=== PATIENT | male | born 1935 | race Caucasian/White ===

== ENCOUNTER 2017-11-20 09:22 | Inpatient (IN) | payer OTHER, MEDICARE ==
[~2017-11-20 09:22] MED LIST: NS IV ONE; POVIDONE-IODINE 20 ML in SODIUM CL IRRIG SOLUTION 500 ML IRR ONE; ROPIVACAINE 0.2% 80 MG, EPINEPHrine 0.2 MG, KETOROLAC TROMETHAMINE 30 MG in SYRINGE 0 ML IU ONE; TRANEXAMIC ACID IV ONE
[2017-11-20] MEDS ORDERED: DEXAMETHASONE 4 MG/ML VIAL IVP ONE (09:56)
[2017-11-20] MEDS ORDERED: GABAPENTIN 300 MG CAP PO ONE (09:56)
[2017-11-20] MEDS ORDERED: FAMOTIDINE 20 MG TAB PO ONE (09:56)
[2017-11-20] MEDS ORDERED: ceFAZolin 2 GM/SWFI 2 GM/20 ML SYR IVP ONE (09:56)
[2017-11-20] MEDS ORDERED: ONDANSETRON 4 MG/2 ML VIAL IVP ONE (09:56)
[2017-11-20] MEDS ORDERED: ACETAMINOPHEN 325 MG TAB PO ONE (09:56)
[2017-11-20] MEDS ORDERED: LR 1,000 ML IV ONE (09:59)
[2017-11-20] MEDS ORDERED: LIDOCAINE 1% 2 ML INJ ID PRN (09:59)
[2017-11-20] MEDS ORDERED: ceFAZolin 1 GM/5 ML SYR ONE (10:30)
[2017-11-20] MEDS ORDERED: MIDAZOLAM 2 MG/2 ML VIAL IVP ONE (11:45)
--- NOTE | 2017-11-20 11:49 | PDANEPAE ---
ANE History of Present Illness R SERENITY ANE Past Medical History - Cardiovascular History Hx Hypertension: Yes Hx Arrhythmias: No Hx Chest Pain: No Hx Coronary Artery / Peripheral Vascular Disease: No Hx CHF / Valvular Disease: No Hx Palpitations: No Cardiovascular History Comment: hypercholesterolemia - Pulmonary History Hx COPD: No Hx Asthma/Reactive Airway Disease: No Hx Recent Upper Respiratory Infection: No Hx Oxygen in Use at Home: No Hx Sleep Apnea: No Sleep Apnea Screening Result - Last Documented: Positive Pulmonary History Comment: randi triggers no dx - Neurologic History Hx Cerebrovascular Accident: No Hx Seizures: No Hx Dementia: No Neurologic History Comment: tia 2007 - Endocrine History Hx Diabetes: No - Renal History Hx Renal Disorders: Yes Renal History Comment: CA PREV TURBT. BCG TREATMENTS LAST 08/2017 - Liver History Hx Hepatic Disorders: No - Neurological & Psychiatric Hx Hx Neurological and Psychiatric Disorders: No - Cancer History Hx Cancer: Yes Cancer History Comment: BLADDER - Congenital Disorder History Hx Congenital Disorders: No - GI History Hx Gastrointestinal Disorders: Yes Gastrointestinal History Comment: hiatal hernia MANAGED BY DIET - Other Health History Other Health History: OSTEOARTHRITIS - Chronic Pain History Chronic Pain: Yes (RT HIP) - Surgical History Prior Surgeries: TURBT 04/2015. LT KNEE SCOPE ANE Review of Systems Review of Systems: - Exercise capacity METS (RN): 4 METS ANE Patient History - Allergies Allergies/Adverse Reactions: garlic Allergy (Verified 11/01/17 12:10) GI ISSUES onion Allergy (Verified 11/01/17 12:10) GI ISSUES - Home Medications Home Medications: Losartan/Hydrochlorothiazide [Losartan-Hctz 100-25 Mg Tab] 1 each PO HS [Last Taken 11/13/17] Multivitamin with Minerals [Myvitalife] 1 each PO HS 03/03/15 [Last Taken ] Aspirin [Aspirin 81mg (*)] 81 mg PO HS 10/30/17 [Last Taken 11/13/17] Atorvastatin Calcium [Lipitor 40 mg (*)] 40 mg PO HS 10/30/17 [Last Taken ] Herbals/Supplements -Info Only 1 ea PO DAILY 10/30/17 [Last Taken 11/13/17] amLODIPine BESYLATE [Norvasc 2.5 mg (*)] 2.5 mg PO HS 10/30/17 [Last Taken 11/13] - NPO status NPO Since - Liquids (Date): 11/19/17 NPO Since - Liquids (Time): 21:00 NPO Since - Solids (Date): 11/19/17 NPO Since - Solids (Time): 20:00 - Smoking Hx Smoking Status: Former smoker - Family Anes Hx Family Hx Anesthesia Complications: none ANE Labs/Vital Signs - Labs - CBC WBC: labs reviewed and okay - Vital Signs Blood Pressure: 181/81 Heart Rate: 55 Respiratory Rate: 16 O2 Sat (%): 93 Height: 175.26 cm Weight: 78.471 kg ANE Physical Exam - Airway Neck exam: FROM Mallampati Score: Class 2 Mouth exam: normal dental/mouth exam - Pulmonary Pulmonary: no respiratory distress - Cardiovascular Cardiovascular: regular rate and rhythym - ASA Status ASA Status: II (R/B/A explained and pt. agrees to proceed)
--- NOTE | 2017-11-20 11:52 | PDHPUP ---
History & Physical Update H&P update statement: This history and physical update is based on an assessment of the patient which was completed after admission or registration (within 24 hours), but prior to the surgery/procedure. H&P update: H&P reviewed & patient examined, no change in patient's condition since H&P completed
[2017-11-20] MEDS ORDERED: PROPOFOL/EMULSION 500 MG/50 ML BOTTLE IV ONE ×2 (12:28→13:36)
[2017-11-20] MEDS ORDERED: fentaNYL 100 MCG/2 ML INJ ONE (12:28)
[2017-11-20] MEDS ORDERED: HYDROCODONE/APAP 5/325 TAB PO PRN (13:54)
[2017-11-20] MEDS ORDERED: fentaNYL 100 MCG/2 ML INJ IVP PRN (13:54)
[2017-11-20] MEDS ORDERED: MEPERIDINE 25 MG/ML SYR IVP PRN (13:54)
[2017-11-20] MEDS ORDERED: OXYCODONE/APAP 5/325 TAB PO PRN (13:54)
[2017-11-20] MEDS ORDERED: ONDANSETRON 4 MG/2 ML VIAL IVP PRN ×2 (13:54→14:11)
[2017-11-20] MEDS ORDERED: ALBUTEROL 3 ML DEYVIAL IH PRN (13:54)
[2017-11-20] MEDS ORDERED: NALOXONE HCL 0.4 MG/ML INJ IVP PRN (13:54)
[2017-11-20] MEDS ORDERED: ACETAMINOPHEN 500 MG TAB PO PRN (13:54)
[2017-11-20] MEDS ORDERED: LR 500 ML IV PRN (13:54)
[2017-11-20] MEDS ORDERED: LABETALOL HCL 5 MG/ML 20 ML MDV IVP PRN (13:54)
[2017-11-20] MEDS ORDERED: DEXAMETHASONE 4 MG/ML VIAL IVP PRN (13:54)
[2017-11-20] MEDS ORDERED: PHENYLEPHRINE HCL 100 MCG/ML SYR IVP PRN (13:54)
[2017-11-20] MEDS ORDERED: PROMETHAZINE HCL 25 MG/ML INJ IVP PRN ×2 (13:54→14:11)
[2017-11-20] MEDS ORDERED: METOCLOPRAMIDE 10 MG/2 ML VIAL IVP PRN ×2 (13:54→14:11)
[2017-11-20] MEDS ORDERED: CYCLOBENZAPRINE 10 MG TAB PO PRN (14:11)
[2017-11-20] MEDS ORDERED: ONDANSETRON DISINTEGRATING 4 MG TAB PO PRN (14:11)
[2017-11-20] MEDS ORDERED: TEMAZEPAM 15 MG CAP PO PRN (14:11)
[2017-11-20] MEDS ORDERED: traMADol 50 MG TAB PO PRN (14:11)
[2017-11-20] MEDS ORDERED: BISACODYL 10 MG SUPP PR PRN (14:11)
[2017-11-20] MEDS ORDERED: DIPHENOXYLATE/ATROPINE LOMOTIL 1 TAB PO PRN (14:11)
[2017-11-20] MEDS ORDERED: LACTULOSE 20 GM/30 ML UDCUP PO PRN (14:11)
[2017-11-20] MEDS ORDERED: MAGNESIUM HYDROXIDE 30 ML UDCUP PO PRN (14:11)
[2017-11-20] MEDS ORDERED: PROMETHAZINE HCL 25 MG SUPPR PR PRN (14:11)
[2017-11-20] MEDS ORDERED: POLYETHYLENE GLYCOL 3350 17 GM PKT PO PRN (14:11)
[2017-11-20] MEDS ORDERED: oxyCODONE IR 5 MG TAB PO PRN (14:11)
[2017-11-20] MEDS ORDERED: NS 500 ML IV PRN (14:11)
[2017-11-20] MEDS ORDERED: KETOROLAC 30 MG/1 ML SDV IVP PRN (14:11)
[2017-11-20] MEDS ORDERED: diphenhydrAMINE 25 MG CAP PO PRN (14:11)
--- NOTE | 2017-11-20 14:12 | POSTOPPROG ---
Post Op Note Date of Operation: 11/20/17 Surgeon: Darion Sheets Learning Support Specialist: Giovana Anesthesiologist: Dr. Lc Childs Anesthesia: IV Sedation, Spinal Post-op Diagnosis: Right hip severe degenerative arthritis Procedure: Right total hip arthroplasty Inf/Abcess present in the surg proc area at time of surgery?: No EBL: 100-500 (Ceramic femoral head on highly cross-linked polyethylene cup liner )
[2017-11-20] MEDS ORDERED: LR 1,000 ML IV SCH (14:30)
--- NOTE | 2017-11-20 14:59 | GOP ---
[f rep st] OPERATIVE REPORT DATE OF OPERATION: 11/20/2017 SURGEON: Darion Sheets MD JAVA SQL DEVELOPER: 1. Ney Zheng PA-C. 2. Shahid Quintero CFA. ANESTHESIA: A combination of Marcaine, spinal, and IV sedation. ANESTHESIOLOGIST: Lc Childs MD PREOPERATIVE DIAGNOSIS: Right hip severe degenerative arthritis. POSTOPERATIVE DIAGNOSIS: Right hip severe degenerative arthritis. PROCEDURE PERFORMED: Right total hip arthroplasty, ceramic femoral head on highly cross-link polyeth ylene cup liner. FINDINGS: DESCRIPTION OF PROCEDURE: The patient was given 2 g of IV Ancef preoperatively within 60 minutes of surgery. He also received IV tranexamic acid at a dose of 20 mg/kg. He was placed on the operating room table and given spinal anesthesia with Marcaine by Dr. Childs. He was then placed supine and giv en IV sedation. A Ferreira catheter was not used. He wore a TRACEY stocking and SCD on the nonoperative l eg. He was rolled to the left lateral decubitus position. The position was secured with the pegboar d table attachment. An axillary roll was used, and all pressure points were carefully padded. I was careful to lock his pelvis in a rigid vertical position. His perineum was isolated with plastic adh esive drapes. The right hip and right lower extremity were prepped with ChloraPrep. They were drape d free using sterile sheets, stockinette, and Ioban plastic drapes. The World Health Organization time-out was performed to verify the correct surgical side and site and the correct patient identity. The [place] time-out was also performed. I made a 4-5 inch straight oblique posterolateral hip skin incision. The subcutaneous tissues were s harply divided, and hemostasis was obtained using electrocautery. The fascia tenzin was identified and split along the axis of its fibers. I then curved posteriorly and proximally, and split the fascia of the gluteus orly and bluntly split the muscle fibers in line with their orientation. The Charn erum self-retaining retractor was inserted. His sciatic nerve was located, partially exposed, and pro tected throughout the procedure. The external rotators and the posterior hip capsule were divided as separate layers at the base of the femoral neck, tagged, and reflected posteriorly. A smooth 8-inch Steinmann pin was inserted vertically into the ilium, superior to the acetabulum. An 1/8-inch drill bit was inserted vertically into the greater trochanter and parallel to the first pin. The distance between the 2 was measured for leg length reference. His femoral head was dislocated posteriorly. Severe degenerative changes were present. His femoral neck was osteotomized at the appropriate level and inclination. I was careful to preserve all the posterior capsule and most of the anterior capsule. The remnant of his damaged labrum was completely excised. I prepared the femur first. This allowed me to accounting bookkeeper the amount of natural femoral neck anteversion. This, in turn, allowed me to later determine the correct amount of cup anteversion. He had approxi mately 10-12 degrees of natural femoral neck anteversion. The canal was opened laterally with a box chisel. I used a starter reamer, followed by hand broaching sequentially up to size 5. I selected t he [place] Accolade II broach with standard offset in size 5 and used this is a trial stem. I was ca reful to lateralize adequately. Appropriate retractors were inserted to expose the acetabulum. The acetabulum was reamed sequentiall y up to 55 mm. I selected the 56 mm [place] Tritanium hemispherical solid-back shell. This was chasity ed securely into place in the proper degree of inclination and anteversion. I used the transverse ac etabular ligament and other acetabular bony landmarks to help me properly orient the cup. Supplement al screw fixation was not necessary. I inserted a screw-in metal dome hole plug. I performed a series of trial reductions to determine length and stability. I concluded that the siz e 5 stem with standard offset and a +2.5 mm neck length with a 36 mm head and a 10 degree lipped line r gave me the proper combination of appropriate length and good anterior and posterior stability. I recognized that I might be lengthening him a few mm but I wanted the greater stability that the lengt h provided. The 10 degree lip [place] X3 highly cross-linked polyethylene liner was inserted and tapped securely into place. I selected the Accolade II stem in a size 5 with high offset. This was inserted press-f it and was a good tight fit. I did 1 final trial reduction and confirmed that the +2.5 mm neck lengt h with a 36 mm head was the proper combination. The [place] Biolox Delta ceramic head with an outsid e diameter of 36 mm and a neck length of +2.5 mm was tapped securely onto the clean trunnion. The ac etabulum was irrigated, cleaned, and the hip was reduced 1 final time. He had excellent anterior and posterior stability and appropriate length. 40 mL of the joint anesthetic cocktail was injected into the capsule, the deep musculature, and the s ubcutaneous tissues around the skin edges. The joint was thoroughly irrigated 1 final time with a di lute Betadine solution. His sciatic nerve was reinspected and looked unharmed. The external rotators and the posterior hip capsule were repaired in separate layers with #2 FiberWir e sutures through drill holes in the greater trochanter. The fascia tenzin was repaired first with 2 f [id number] #2 FiberWire sutures, followed by a running #2 barbed Ethicon Stratafix PDO suture. T he subcutaneous tissues were closed with a running 0 barbed Ethicon Stratafix Monoderm suture. The s kin was closed with a running 3-0 barbed Ethicon Stratafix Monoderm subcuticular suture. The skin ed ges were reapproximated and sealed with Dermabond glue. The wound was covered with a large piece of waterproof Mepilex surgical dressing. A long-leg TRACEY stocking and SCD were applied to his right lower extremity. An abduction pillow was p laced between his knees. He was awakened from anesthesia and rolled to the supine position on his [facility] gurney. He was taken to PACU in satisfactory condition. There were no recognized intraoperat sveta complications. The estimated blood loss was about 300 mL. The sponge and needle counts were correct on 2 occasions. I used a Anabell Tritanium hemispherical solid-backed acetabular shell with an outside diameter of 56 mm. The liner was a [place] X3 10-degree lipped highly cross-linked liner with an inside diameter o f 36 mm. The femoral component was a press-fit Anabell high offset Accolade II stem in a size 5. Th e femoral head was a [place] Biolox Delta ceramic head with a +2.5 mm neck length and a 36 mm outside diameter. Christian Zheng and Shahid Quintero acted as surgical assistants. Their assistance was a medical necess ity for safe completion of the procedure. /[id number]/MODL
--- NOTE | 2017-11-20 16:34 | POSTANESTH ---
Post Anesthetic Evaluation Cardiovascular Status: Normal, Stable Respiratory Status: Normal, Stable Level of Consciousness/Mental Status: Can Participate in Eval Pain Control: Adequate, Prn Tx Ordered Nausea/Vomiting Control: Adequate, Prn Tx Ordered Complications Possibly Related to Anesthesia: None Noted
[2017-11-20] MEDS: ACETAMINOPHEN 325 MG TAB PO SCH (18:54)
[2017-11-20] MEDS ORDERED: LOSARTAN POTASSIUM 50 MG TAB PO SCH (21:00)
[2017-11-20] MEDS ORDERED: ATORVASTATIN CALCIUM 40 MG TAB PO SCH (21:00)
[2017-11-20] MEDS ORDERED: NON-FORMULARY NEW DRUG (Losartan/Hydrochlorothiazide [Losartan-Hctz 100-25 Mg Tab] 1 EACH) PO SCH (21:00)
[2017-11-20] MEDS ORDERED: HYDROCHLOROTHIAZIDE 25 MG TAB PO SCH (21:00)
[2017-11-20] MEDS ORDERED: ceFAZolin 2 GM/DEXTROSE 100 ML IV SCH (22:00)
[2017-11-20] MEDS: SENNOSIDES/DOCUSATE SODIUM TAB PO SCH (22:16)
[2017-11-20] MEDS: FAMOTIDINE 20 MG TAB PO SCH (22:18)
[2017-11-20] MEDS: ceFAZolin 2 GM/SWFI 2 GM/20 ML SYR IVP SCH (22:21)
[2017-11-20] MEDS: TRANEXAMIC ACID 650 MG TAB PO SCH (22:25)
[2017-11-20] MEDS: ASPIRIN 325 MG TAB PO SCH (22:26)
[2017-11-21] MEDS: ACETAMINOPHEN 325 MG TAB PO SCH ×3 (00:59→12:24)
[2017-11-21] MEDS: TRANEXAMIC ACID 650 MG TAB PO SCH ×2 (03:59→12:25)
[2017-11-21 05:02] VITALS: PULSE 54
[2017-11-21] MEDS ORDERED: ceFAZolin 2 GM/SWFI 2 GM/20 ML SYR IVP SCH (06:00)
[2017-11-21] MEDS: ceFAZolin 2 GM/SWFI 2 GM/20 ML SYR IVP SCH (06:58)
[2017-11-21 07:32] VITALS: BP 161/77; RESP 16; TEMP 97.6; O2SAT 95
--- NOTE | 2017-11-21 07:50 | SOAPPROG ---
SOAP Progress Note Assessment/Plan: Assessment: Afebrile. Mild pain. Has stood and walked a little in the room. Dsg is dry. Sciatic nerve intact. H/H is good. Films look good. Plan:PT today. Home later today. OP PT. 11/21/17 07:49 Objective: Vital Signs Temp Pulse Resp BP Pulse Ox 36.4 C 54 L 16 161/77 H 95 11/21/17 07:30 11/21/17 07:30 11/21/17 07:30 11/21/17 07:30 11/21/17 07:30 Laboratory Results 11/21/17 05:09 11/20/17 11/21/17 11/22/17 05:59 05:59 05:59 Intake Total 1670 Output Total 3500 450 Balance -1830 -450 ICD10 Worksheet Patient Problems: Problems Problem Status Onset Osteoarthritis of right hip Acute
--- NOTE | 2017-11-21 08:02 | GDS ---
[f rep st] DISCHARGE SUMMARY ADMISSION DIAGNOSIS: Right hip severe degenerative arthritis. DISCHARGE DIAGNOSIS: Right hip severe degenerative arthritis. OPERATION PERFORMED: 11/20/2017, right total hip arthroplasty. POSTOPERATIVE COMPLICATIONS: None. CONDITION ON DISCHARGE: Improved. DESCRIPTION OF HOSPITAL COURSE: The patient was admitted to the hospital on the morning of surgery. His admission CBC, electrolytes, BUN, and creatinine were all normal. The same day, under a combina tion of Marcaine, spinal, and IV sedation, he underwent a right total hip arthroplasty. Postoperativ kisha, he was treated with multimodal DVT prophylaxis, including aspirin. On the 1st postoperative day his hemoglobin and hematocrit were 13.2 and 39.8. He was seen by Physical Therapy and made good pro tarsha with ambulation and stairs. By the time of discharge, he was afebrile and was independent walk ing. DISPOSITION: Patient discharged to his home. He will go to outpatient physical therapy in my office . Continue aspirin 325 mg p.o. daily for 21 days. He may progress to full weightbearing on the righ t as tolerated. Use an abduction pillow in bed for 3 weeks. Use TRACEY stockings for 1 week. I will s ee him back in the office on December 13, 2017. If there any problems, he is to call me at the office. /[id number]/MODL
--- NOTE | 2017-11-21 08:02 | GDS ---
[f rep st] DISCHARGE SUMMARY ADMISSION DIAGNOSIS: Right knee severe degenerative arthritis. DISCHARGE DIAGNOSIS: Right knee severe degenerative arthritis. OPERATION PERFORMED: 11/20/2017, a right total knee arthroplasty. POSTOPERATIVE COMPLICATIONS: None. CONDITION ON DISCHARGE: Improved. DESCRIPTION OF HOSPITAL COURSE: The patient was admitted to the hospital on the morning of surgery. His admission CBC was normal. The same day, under a combination of Marcaine, spinal, IV sedation, a nd adductor canal block, he underwent a right total knee arthroplasty. Postoperatively, he was treat ed with multimodal DVT prophylaxis, including aspirin. On the first postoperative day, his hemoglobi n and hematocrit were 13.1 and 37.8. He was seen by Physical Therapy and made good progress with amb ulation and stairs. Dr. Rosario gave him a 2nd dose of medication through the adductor canal catheter on the first postoperative morning. By the time of discharge, he was afebrile and was independent wa lking. DISPOSITION: The patient is discharged to his home. He will go to outpatient physical therapy at [facility] office next week. He may progress to full weightbearing on the right as tolerated. Continue aspir in 325 mg p.o. daily for 21 days. I will see him back in the office on December 05, 2017. If any proble ms, he is to call me at the office. /[id number]/MODL
[2017-11-21] MEDS: SENNOSIDES/DOCUSATE SODIUM TAB PO SCH (08:20)
[2017-11-21] MEDS: ASPIRIN 325 MG TAB PO SCH (08:21)
[2017-11-21] MEDS: FAMOTIDINE 20 MG TAB PO SCH (08:21)
[2017-11-21] MEDS ORDERED: FERROUS SULFATE 140 MG TAB.ER PO SCH (09:00)
--- NOTE | 2017-11-21 10:24 | ASMTCMCOM ---
CM Note CM Note Notes: CM business process expert pre-call: pt independent and has DME. PT rec outpatient. Pt medically stable for d/c w support of adult children. No CM d/c needs identified. Date Signed: 11/21/2017 10:23 AM Electronically Signed By:IVONNE Ordoñez
== END 2017-11-21 12:50 | disposition home or self-care (01) | DRG 470 ==
LOC: F3E 09:22 → F3N 12:22
PROVIDERS: ADMIT Orthopaedic Surgery; ATTEND Orthopaedic Surgery
PROC: 0SR904Z Replacement of Right Hip Joint with Ceramic on Polyethylene Synthetic Substitute, Open Approach (ICD-10-PCS; principal; 2017-11-20 11:15)
DX: M17.11 Unilateral primary osteoarthritis, right knee (principal); I10 Essential (primary) hypertension; E78.00 Pure hypercholesterolemia, unspecified; Z85.51 Personal history of malignant neoplasm of bladder; G47.33 Obstructive sleep apnea (adult) (pediatric); N40.1 Benign prostatic hyperplasia with lower urinary tract symptoms
CPT/HCPCS: 97161-GP; 97166-GO; G8978-GP-CI; G8979-GP-CI; G8980-GP-CI; G8987-GO-CI; G8988-GO-CI; G8989-GO-CI; J0171; J0690; J1100; J1885; J2250; J2370; J2405; J2704; J2795; J3010

== ENCOUNTER 2018-03-25 05:52 | Observation (INO) | payer OTHER, MEDICARE ==
--- NOTE | 2018-03-17 12:42 | GHP ---
[f rep st] PREOP HISTORY AND PHYSICAL DATE OF ADMISSION: 03/25/2018 PROBLEM: Left knee degenerative arthritis. HISTORY OF PRESENT ILLNESS: The patient is an 82-year-old man admitted for a left total knee arthrop lasty. He has had progressive pain in the left knee. It is painful to walk. His activities are renée y limited. I did an open medial meniscectomy on him in 1981. He is admitted for a left total knee a rthroplasty. PAST MEDICAL HISTORY: He is treated for hypertension and elevated cholesterol. No history of heart disease, stents, DVT, hepatitis, MRSA staph infections, sleep apnea or bleeding problems. CURRENT MEDICATIONS: Amlodipine 2.5 mg per day. One baby aspirin per day. Atorvastatin 40 mg per d ay. Losartan 100 mg/hydrochlorothiazide 25 mg 1 tablet per day. DRUG ALLERGIES: Celebrex. Metal allergies: None. Latex allergy: None. SOCIAL HISTORY: The patient is . He does not smoke cigarettes and occasionally drinks alcoho l. He is retired. PHYSICAL EXAMINATION: GENERAL: He is an alert, healthy-appearing elderly man. VITAL SIGNS: Height 5 feet 9 inches. Weight 170 pounds. BMI 25.1. EYES: Conjunctivae and sclerae are clear. Pupils are round and reactive. MOUTH: Good oral hygiene. No loose teeth. CHEST: Clear. HEART: Regular rhythm. He has a grade 2/6 systolic ejection murmur. EXTREMITIES: Pertinent findings limited to h is left knee. He has varus alignment. No effusion. He is tender along the medial joint line. He h as mild pseudolaxity of his medial collateral ligament. Full extension to 105 degrees of flexion. STUDIES: Films from February 10, 2018, show advanced medial compartment degenerative arthritis in his lef t knee. He has varus alignment. He has significant vascular calcifications in both lower extremitie s. IMPRESSION ON ADMISSION: 1. Left knee advanced medial compartment degenerative arthritis. He is prepared for a right total k nee arthroplasty. 2. Four months status post successful right total hip arthroplasty. 3. Treatment for hypertension and elevated cholesterol. PLAN: He will undergo a left total knee arthroplasty. The surgery has been described to him, includ ing the risks, complications, expectations, and recovery time. I have stressed the importance of pos toperative physical therapy. I have advised him that 85% of people get a good result with a total kn ee replacement. 15% of people are not happy with their result. All his questions have been answered , and he consents to surgery. /[id number]/MODL
[2018-03-25] MEDS ORDERED: TRANEXAMIC ACID 1,000 MG in NS 100 ML IV ONE (06:00)
[2018-03-25] MEDS ORDERED: POVIDONE-IODINE 20 ML in SODIUM CL IRRIG SOLUTION 500 ML IRR ONE (06:00)
[2018-03-25] MEDS ORDERED: TRANEXAMIC ACID 3,000 MG in NS (SYRINGE) 50 ML IRR ONE (06:00)
[2018-03-25] MEDS ORDERED: ROPIVACAINE 0.2% 80 MG, EPINEPHrine 0.2 MG, KETOROLAC TROMETHAMINE 30 MG in SYRINGE 0 ML IU ONE (06:00)
--- NOTE | 2018-03-25 06:01 | POSTANESTH ---
Post Anesthetic Evaluation Cardiovascular Status: Normal, Stable Respiratory Status: Normal, Stable Level of Consciousness/Mental Status: Can Participate in Eval, Alert and Oriented Pain Control: Adequate, Prn Tx Ordered Nausea/Vomiting Control: Adequate, Prn Tx Ordered Complications Possibly Related to Anesthesia: None Noted Notes: LE moving weakly, no sensation secondary to spinal. U'S guided AC cath placed easily for POPC PSR. See anesthesia record for full note.
--- NOTE | 2018-03-25 06:02 | PDANEPAE ---
ANE History of Present Illness 82 yo male with OA of L knee for L TKA ANE Past Medical History - Cardiovascular History Hx Hypertension: Yes Hx Arrhythmias: No Hx Chest Pain: No Hx Coronary Artery / Peripheral Vascular Disease: No Hx CHF / Valvular Disease: No Hx Palpitations: No Cardiovascular History Comment: hypercholesterolemia - Pulmonary History Hx COPD: No Hx Asthma/Reactive Airway Disease: No Hx Recent Upper Respiratory Infection: No Hx Oxygen in Use at Home: No Hx Sleep Apnea: No Sleep Apnea Screening Result - Last Documented: Positive Pulmonary History Comment: randi triggers no dx - Neurologic History Hx Cerebrovascular Accident: No Hx Seizures: No Hx Dementia: No Neurologic History Comment: tia 2007 - Endocrine History Hx Diabetes: No - Renal History Hx Renal Disorders: Yes Renal History Comment: CA PREV TURBT. BCG TREATMENTS LAST 03/06/2018 - Liver History Hx Hepatic Disorders: No - Neurological & Psychiatric Hx Hx Neurological and Psychiatric Disorders: No - Cancer History Hx Cancer: Yes Cancer History Comment: BLADDER - Congenital Disorder History Hx Congenital Disorders: No - GI History Hx Gastrointestinal Disorders: Yes Gastrointestinal History Comment: hiatal hernia MANAGED BY DIET - Other Health History Other Health History: OSTEOARTHRITIS - Chronic Pain History Chronic Pain: Yes (LT KNEE) - Surgical History Prior Surgeries: RT TOTAL HIP 10/2017. TURBT 04/2015. LT KNEE SCOPE ANE Review of Systems Review of Systems: - Exercise capacity METS (RN): 4 METS - Systems Constitutional: Reports: no symptoms Cardiac: Reports: no symptoms Respiratory: Reports: no symptoms ANE Patient History - Allergies Allergies/Adverse Reactions: celecoxib [From Celebrex] Allergy (Verified 03/25/18 06:55) Violent Diarrhea garlic Allergy (Verified 03/25/18 06:55) GI ISSUES onion Allergy (Verified 03/25/18 06:55) GI ISSUES - Home Medications Home Medications: Aspirin [Aspirin 81mg (*)] 81 mg PO DAILY 03/03/18 [Last Taken 03/18/18] Atorvastatin Calcium [Lipitor 40 mg (*)] 40 mg PO DAILY 03/03/18 [Last Taken 04:45] Calcium Carb W/Vit D [Calcium Carb W/Vit D 500/200 (*)] 500 mg PO DAILY [Last Taken 03/18/18] Losartan/Hydrochlorothiazide [Losartan-Hctz 100-25 mg Tab] 1 each PO DAILY 03/03 [Last Taken 03/24/18 07:00] Multivitamins [Multivitamin (*)] 1 each PO DAILY 03/03/18 [Last Taken 03/18/18] amLODIPine BESYLATE [Norvasc 2.5 mg (*)] 2.5 mg PO DAILY 03/03/18 [Last Taken 04:45] - NPO status NPO Status: no food or drink >8 hours - Anes Hx Anes Hx: no prior problems - Smoking Hx Smoking Status: Former smoker Marijuana use: No - Alcohol Use Alcohol Use: Occasionally - Family Anes Hx Family Anes Hx: neg - N/A Family Hx Anesthesia Complications: none ANE Labs/Vital Signs - Vital Signs Vital Signs: reviewed preoperatively; see RN documention for details Height: 170.18 cm Weight: 78.471 kg ANE Physical Exam - Airway Neck exam: FROM Mallampati Score: Class 2 Mouth exam: normal dental/mouth exam - Pulmonary Pulmonary: clear to auscultation - Cardiovascular Cardiovascular: regular rate and rhythym - ASA Status ASA Status: III ANE Anesthesia Plan Anesthesia Plan: spinal Regional Anesthesia: adductor canal FNB
[2018-03-25] MEDS ORDERED: FAMOTIDINE 20 MG TAB PO ONE (06:17)
[2018-03-25] MEDS ORDERED: GABAPENTIN 300 MG CAP PO ONE (06:17)
[2018-03-25] MEDS ORDERED: LIDOCAINE 1% 2 ML INJ ID PRN (06:17)
[2018-03-25] MEDS ORDERED: DEXAMETHASONE 4 MG/ML VIAL IVP ONE (06:17)
[2018-03-25] MEDS ORDERED: LR 1,000 ML IV ONE (06:17)
[2018-03-25] MEDS ORDERED: ceFAZolin 2 GM/DEXTROSE 100 ML IV ONE (06:17)
[2018-03-25] MEDS ORDERED: ONDANSETRON 4 MG/2 ML VIAL IVP ONE (06:17)
[2018-03-25] MEDS ORDERED: ACETAMINOPHEN 325 MG TAB PO ONE (06:17)
[2018-03-25] MEDS ORDERED: ceFAZolin 1 GM/5 ML SYR ONE (06:50)
[2018-03-25] MEDS ORDERED: VANCOMYCIN 1 GM VIAL ONE (06:50)
--- NOTE | 2018-03-25 07:07 | PDHPUP ---
History & Physical Update H&P update statement: This history and physical update is based on an assessment of the patient which was completed after admission or registration (within 24 hours), but prior to the surgery/procedure. H&P update: H&P reviewed & patient examined
[2018-03-25] MEDS ORDERED: fentaNYL 100 MCG/2 ML INJ ONE (07:11)
[2018-03-25] MEDS ORDERED: PROPOFOL/EMULSION 500 MG/50 ML BOTTLE IV ONE (07:11)
[2018-03-25] MEDS ORDERED: LIDOCAINE 2% 5 ML SDV ONE (07:11)
[2018-03-25] MEDS ORDERED: BUPIVACAINE/DEXTROSE 7.5MG/ML 2 ML SPINAL AMP SP ONE (07:17)
[2018-03-25] MEDS ORDERED: TRANEXAMIC ACID 3,000 MG/50 ML BAG IRR ONE (07:42)
--- NOTE | 2018-03-25 09:01 | POSTOPPROG ---
Post Op Note Date of Operation: 03/25/18 Surgeon: Darion Sheets Chair Spring Assembler: Christian Zheng/Ingrid Anesthesiologist: Dr. Francisco Anesthesia: IV Sedation, Spinal Post-op Diagnosis: Left knee severe degenerative arthritis Procedure: Left total knee arthroplasty Inf/Abcess present in the surg proc area at time of surgery?: No EBL: 50-100 (Adductor canal in PACU with indwelling catheter.)
[2018-03-25] MEDS ORDERED: ALBUTEROL 3 ML DEYVIAL IH PRN (09:02)
[2018-03-25] MEDS ORDERED: fentaNYL 100 MCG/2 ML INJ IVP PRN (09:02)
[2018-03-25] MEDS ORDERED: ENALAPRILAT DIHYDRATE 1.25 MG/ML VIAL IVP PRN (09:02)
[2018-03-25] MEDS ORDERED: NALOXONE HCL 0.4 MG/ML INJ IVP PRN (09:02)
[2018-03-25] MEDS ORDERED: PROMETHAZINE HCL 25 MG/ML INJ IVP PRN ×2 (09:02→09:23)
[2018-03-25] MEDS ORDERED: DIAZEPAM 5 MG/ML 1 ML SYR IVP PRN (09:02)
[2018-03-25] MEDS ORDERED: oxyCODONE IR 5 MG TAB PO PRN ×2 (09:02→09:23)
[2018-03-25] MEDS ORDERED: ACETAMINOPHEN 500 MG TAB PO PRN (09:02)
[2018-03-25] MEDS ORDERED: PROPOFOL 200 MG/20 ML VIAL ONE (09:08)
[2018-03-25] MEDS ORDERED: TEMAZEPAM 15 MG CAP PO PRN (09:23)
[2018-03-25] MEDS ORDERED: POLYETHYLENE GLYCOL 3350 17 GM PKT PO PRN (09:23)
[2018-03-25] MEDS ORDERED: DIPHENOXYLATE/ATROPINE LOMOTIL 1 TAB PO PRN (09:23)
[2018-03-25] MEDS ORDERED: diphenhydrAMINE 25 MG CAP PO PRN (09:23)
[2018-03-25] MEDS ORDERED: ONDANSETRON 4 MG/2 ML VIAL IVP PRN (09:23)
[2018-03-25] MEDS ORDERED: traMADol 50 MG TAB PO PRN (09:23)
[2018-03-25] MEDS ORDERED: PROMETHAZINE HCL 25 MG SUPPR PR PRN (09:23)
[2018-03-25] MEDS ORDERED: MAGNESIUM HYDROXIDE 30 ML UDCUP PO PRN (09:23)
[2018-03-25] MEDS ORDERED: NS 500 ML IV PRN (09:23)
[2018-03-25] MEDS ORDERED: LACTULOSE 20 GM/30 ML UDCUP PO PRN (09:23)
[2018-03-25] MEDS ORDERED: ONDANSETRON DISINTEGRATING 4 MG TAB PO PRN (09:23)
[2018-03-25] MEDS ORDERED: BISACODYL 10 MG SUPP PR PRN (09:23)
[2018-03-25] MEDS ORDERED: METOCLOPRAMIDE 10 MG/2 ML VIAL IVP PRN (09:23)
[2018-03-25] MEDS ORDERED: LR 1,000 ML IV SCH (09:30)
--- NOTE | 2018-03-25 09:48 | GOP ---
[f rep st] OPERATIVE REPORT DATE OF OPERATION: 03/25/2018 SURGEON: Darion Sheets MD AUTISM SPECIALIST: LIZZY Goff [facility] ANESTHESIA: Combination of Marcaine and spinal, IV sedation, and adductor canal block. ANESTHESIOLOGIST: Torri Francisco MD PREOPERATIVE DIAGNOSIS: Left knee severe degenerative arthritis. POSTOPERATIVE DIAGNOSIS: Left knee severe degenerative arthritis. PROCEDURE PERFORMED: Left total knee arthroplasty, cemented, Hernandez and Nephew Journey II, posterior stabilized. FINDINGS: ESTIMATED BLOOD LOSS: Following deflation of tourniquet was about 100 cc. DESCRIPTION OF PROCEDURE: The patient was given 2 g of IV Ancef preoperatively within 60 minutes of surgery. He also received IV tranexamic acid at a dose of 10 mg/kg. He was placed on the operating room table and given spinal anesthesia with Marcaine by Dr. Francisco. He was then placed supine and g iven IV sedation. A Ferreira catheter was not used. He wore a TRACEY stocking and SCD on the nonoperative leg. A small bolster was placed under the left hip to prevent excessive external rotation of the le g. The left lower extremity was prepped with ChloraPrep from the upper thigh tourniquet to the tips of the toes. It was draped free using sterile sheets, stockinette, and Ioban plastic adhesive drape. The lower leg was wrapped with compressive Coban. The leg was exsanguinated with elevation and a 6 -inch compressive wrap, and the pneumatic tourniquet was inflated to 250 mmHg. The World Health Organization time-out was performed to verify the correct patient identity and the c orrect surgical side and site. The [place] time-out was also performed. The Kaybusayo leg holding device was sterilely attached to the operating room table and used throughout the procedure to help position the knee. A straight midline incision was made centered on the patell a. Subcutaneous tissues were sharply divided and hemostasis was obtained using electrocautery. A me dial subcutaneous flap was developed, and the capsule and synovium were opened in a medial parapatell ar fashion. Extensive degenerative changes were present. The medial capsule and periosteum were kortney vated off the rim of the medial tibial plateau all the way around to the posterior medial corner. Hi s medial collateral ligament was released enough to balance the medial side of the knee and correct t he varus alignment. In order to improve exposure, his patella was prepared first. The original thickness of the patella was measured. Peripheral osteophytes were removed. I cut a flat surface on the back of the patella. The patella was sized for a 38 mm round resurfacing component. I removed enough bone from the tripp lla such that the remaining bone plus the thickness of the patellar component recreated the original thickness of the patella. The composite thickness was 25 mm. The intramedullary alignment guide system was used to set up the distal femoral cut. The distal femu r was cut in 5 degrees of valgus. Because of a small preoperative flexion contracture, I made a +2 m m cut on the distal femur. The sizing jig was used to determine proper femoral sizing. He was a angel e size 6 without an anterior shift. The 5 in 1 cutting block was applied, and the anterior and poste rior condylar cuts and chamfer cuts were made. The final jig was used to remove the central portion of the distal femur to accommodate the posterior stabilized femoral component. I was careful to dete rmine proper rotation by referencing off Whitesides line and other bony landmarks. Each cut was chec ked for accuracy before and after it was made. The femur was sized for a size 6 posterior stabilized component. Next, the tibia was prepared. The proximal tibial cut was made using the extramedullary alignment gu yessi system. The cut was made in a few degrees of posterior slope. I was careful to achieve proper v arus/valgus alignment and proper rotation. The posterior compartment was cleared of meniscal remnant s. Osteophytes were removed from the back of the femoral condyles. I checked the flexion and extens ion gaps, and they were equal, balanced and rectangular. The tibia was sized for a size 6 component. With the trial components in place, I selected a 10 mm polyethylene posterior stabilized tibial ins ert. The knee came to full extension and flexed to 130 degrees. There was no overstuffing in flexio n. His collateral ligaments were stable and balanced in 90 degrees of flexion and full extension. T he trial patellar button was applied, and patellar tracking was checked. Tracking was excellent with out any digital pressure. 40 mL of the joint anesthetic cocktail were injected into the posterior capsule, the periarticular st ructures, the quadriceps muscle and tendon areas, and the subcutaneous tissues along the skin edges. The surfaces were prepared for cementing. They were carefully cleaned with the pulsating lavage irri gation and thoroughly dried. The CarboJet device was used to blow dry the cancellous surfaces. A do uble batch of high viscosity methylmethacrylate cement with 2 g of powdered vancomycin added was mixe d. While it was still in a doughy state, all [address] components were cemented in place. Excess cement was removed before it hardened, The 10 mm tibial insert was re-tried and was the proper thickness. The actual component was inserted and locked into place. The knee was thoroughly irrigated 1 final time with a dilute Betadine soluti on. The tourniquet was deflated and the total tourniquet time was 49 minutes. Tranexamic acid was i nstilled locally and left in place for 2 or 3 minutes. One final irrigation with Betadine was perfor med. The vastus medialis portion of the extensor mechanism was repaired with several interrupted fig [id number] #2 FiberWire sutures. The capsule and synovium were closed first with multiple interrup tracey [id number] 0 PDS sutures, followed by a running #2 barbed Ethicon Stratafix PDO suture. Sub cutaneous tissues were closed with a running 0 barbed Ethicon Stratafix Monoderm suture. The skin wa s closed with a running 3-0 barbed Ethicon Stratafix Monoderm subcuticular suture. The skin was seal ed with half-inch Steri-Strips. The wound was covered with a piece of large Mepilex waterproof dress ing and a 6-inch compressive wrap. A long-leg TRACEY stocking and SCD were applied, followed by the real estate transaction coordinator ling device. The patient wore a stocking and SCD on the opposite leg during the procedure. The Medi plex sacral dressing was applied. I used a size 6 cemented Hernandez and Nephew Oxinium posterior stabilized femoral component, a size 6 ce mented tibial base plate, a 38 mm cemented round all-polyethylene resurfacing patellar component. COUNTS: The sponge and needle count were correct on 2 occasions. DISPOSITION: The patient was awakened from anesthesia, transferred to his [facility] and taken to PACU in satisfactory condition. There were no recognized intraoperative complications. In the PA CU, for additional postoperative pain control, Dr. Francisco performed an adductor canal block with an indwelling catheter. Christian Zheng and Shahid Quintero acted as surgical assistants. Their assistance was a medical necess ity for safe completion of the procedure. /[id number]/MODL
[2018-03-25] MEDS: KETOROLAC 15 MG/1 ML SDV IVP SCH ×3 (12:33→23:17)
[2018-03-25] MEDS: ACETAMINOPHEN 325 MG TAB PO SCH ×3 (12:34→23:17)
[2018-03-25] MEDS: CYCLOBENZAPRINE 10 MG TAB PO PRN (13:57)
[2018-03-25] MEDS: ceFAZolin 2 GM/DEXTROSE 100 ML IV SCH ×2 (13:57→23:17)
[2018-03-25] MEDS: ASPIRIN 325 MG TAB PO SCH (20:23)
[2018-03-25] MEDS: FAMOTIDINE 20 MG TAB PO SCH (20:23)
[2018-03-25] MEDS: SENNOSIDES/DOCUSATE SODIUM TAB PO SCH (20:23)
[2018-03-26] MEDS: ACETAMINOPHEN 325 MG TAB PO SCH ×2 (05:36→10:50)
[2018-03-26] MEDS: KETOROLAC 15 MG/1 ML SDV IVP SCH (05:37)
[2018-03-26] MEDS ORDERED: ATORVASTATIN CALCIUM 40 MG TAB PO SCH (09:00)
[2018-03-26] MEDS ORDERED: FERROUS SULFATE 140 MG TAB.ER PO SCH (09:00)
[2018-03-26] MEDS ORDERED: LOSARTAN/HCTZ 50/12.5 1 TAB PO SCH (09:00)
--- NOTE | 2018-03-26 09:59 | ASMTCASEMG ---
Living Arrangements What is your living Answers: With Spouse arrangement? Who do you live with? Type Of Residence What kind of residence do Answers: House you live in? Discharge Plan Comments Coordination Status Comments Notes: CM spoke to Dr. Sheets regarding d/c POC. Pt is a 82 y/o man admitted for a left total knee surgery. Pt will not have any d/c needs. Pt will attend outpatient PT. CM available for changes. Plan: Independent Date Signed: 03/26/2018 09:58 AM Electronically Signed By:DEEJAY Rudolph
--- NOTE | 2018-03-26 09:59 | SOAPPROG ---
SOAP Progress Note Assessment/Plan: Assessment: Afebrile. Awake and alert. Minimal pain. He has been up and walking in the [place] and has already done stairs. Hemoglobin and hematocrit are good. Postop films look excellent. His dressing is dry and there is mild swelling. Plan: Re-dose his adductor canal block by Anesthesia this morning. Discharge today. He will go to outpatient physical therapy. 03/26/18 09:58 Objective: Vital Signs Temp Pulse Resp BP Pulse Ox 36.9 C 49 L 15 160/71 H 93 03/26/18 07:27 03/26/18 07:27 03/26/18 07:27 03/26/18 07:27 03/26/18 07:27 Laboratory Results 03/26/18 04:25 03/25/18 03/26/18 03/27/18 05:59 05:59 05:59 Intake Total 3225 240 Output Total 2115 300 Balance 800 -60 ICD10 Worksheet Patient Problems: Problems Problem Status Onset Osteoarthritis of left knee Acute Osteoarthritis of right hip Acute
--- NOTE | 2018-03-26 10:11 | ASMTLACE ---
LACE Length of stay for Answers: 1 day current admission Acuity / Level of Answers: No Care: Did the patient have an inpatient admission? Comorbidities - select Answers: Cerebrovascular disease all that apply (CVA, TIA, aneurysms, vasc ular dementia) Opioid dependence / Chronic pain Other Notes: HTN # of Emergency department Answers: 0 visits in the last 6 months Score: 7 Date Signed: 03/26/2018 10:10 AM Electronically Signed By:DEEJAY Rudolph
--- NOTE | 2018-03-26 10:15 | GDS ---
[f rep st] DISCHARGE SUMMARY ADMISSION DIAGNOSIS: Left knee severe degenerative arthritis. DISCHARGE DIAGNOSIS: Left knee severe degenerative arthritis. OPERATION PERFORMED: 03/25/2018, left total knee arthroplasty. POSTOPERATIVE COMPLICATIONS: None. CONDITION ON DISCHARGE: Improved. DESCRIPTION OF HOSPITAL COURSE: The patient was admitted to the hospital on the morning of surgery. His admission hemoglobin and hematocrit were 17.4 and 53.5. His electrolytes, BUN, and creatinine w ere normal. The same day, under a combination of Marcaine, spinal, IV sedation, and adductor canal b lock, he underwent a left total knee arthroplasty. Postoperatively, he was treated with multimodal D VT prophylaxis, including aspirin. On the first postoperative day, his hemoglobin and hematocrit wer e 14.4 and 42.4. He was seen by Physical Therapy and made excellent progress with ambulation, stairs , and knee range of motion. By the time of discharge, he was afebrile, his wound was dry, and he was independent walking, partial weightbearing on the left. DISPOSITION: Patient discharged to his home. He will go to outpatient physical therapy. Continue a spirin 325 mg p.o. daily for 21 days. TRACEY stockings for 1 week. He has a prescription for oxycodone , tramadol, and Celebrex for pain control. I will see him back in the office in 10 or 12 days. If a ny problems, he is to call me at the office. /[id number]/MODL
[2018-03-26] MEDS: SENNOSIDES/DOCUSATE SODIUM TAB PO SCH (10:51)
[2018-03-26] MEDS: CYCLOBENZAPRINE 10 MG TAB PO PRN (10:51)
[2018-03-26] MEDS: ASPIRIN 325 MG TAB PO SCH (10:51)
[2018-03-26] MEDS: FAMOTIDINE 20 MG TAB PO SCH (10:52)
[2018-03-26 10:55] VITALS: BP 155/92
[2018-03-26] MEDS ORDERED: ROPIVACAINE HCL 150 MG/30 ML INJ ONE (11:04)
[2018-03-26] MEDS ORDERED: LIPID EMULSION 20% 100 ML IV PRN (12:22)
--- NOTE | 2018-03-26 12:23 | SOAPPROG ---
SOAP Progress Note Assessment/Plan: Assessment: Left TKA POD#1 with adductor canal catheter in place. Excellent analgesia still ongoing. Plan was to re-dose ropivacaine 0.5% today and d/c catheter, however aspiration positive for heme in catheter, therefore catheter was not dosed prior to removal. No issue with removal, tip intact. Plan: D/C home with oral analgesics. 03/26/18 12:29 Subjective: Comfortable, reports good pain control. Ambulating well. Denies weakness/ paresthesias in LLE. Objective: Vital Signs Temp Pulse Resp BP Pulse Ox 36.9 C 49 L 15 155/92 H 93 03/26/18 07:27 03/26/18 07:27 03/26/18 07:27 03/26/18 10:50 03/26/18 07:27 Laboratory Results 03/26/18 04:25 03/25/18 03/26/18 03/27/18 05:59 05:59 05:59 Intake Total 3225 240 Output Total 2425 300 Balance 800 -60 Physical Exam - Physical Exam General Appearance: WD/WN, alert, no apparent distress EENT: PERRL/EOMI Respiratory: No respiratory distress Cardiac/Chest: regular rate, rhythm Neuro/Psych: no motor/sensory deficits ICD10 Worksheet Patient Problems: Problems Problem Status Onset Osteoarthritis of left knee Acute Osteoarthritis of right hip Acute
== END 2018-03-26 13:46 | disposition home or self-care (01) ==
LOC: F3N 05:52
PROVIDERS: ADMIT Orthopaedic Surgery; ATTEND Orthopaedic Surgery
PROC: 0SRD069 Replacement of Left Knee Joint with Oxidized Zirconium on Polyethylene Synthetic Substitute, Cemented, Open Approach (ICD-10-PCS; principal; 2018-03-25 07:15)
DX: M17.12 Unilateral primary osteoarthritis, left knee (principal); I10 Essential (primary) hypertension
CPT/HCPCS: 27447; 73560; 77073; 88311; 97116; 97161; 97165; 97530; C1713; C1776; G8978; G8979; G8980; G8987; G8988; G8989; J0171; J0690; J1100; J1885; J2704; J2795; J3010; J3370

== ENCOUNTER 2018-11-06 08:12 | Observation (INO) | payer OTHER, MEDICARE ==
[2018-11-06] MEDS ORDERED: levOFLOXACIN 500 MG/DEXTROSE 100 ML IV ONE (08:23)
[2018-11-06] MEDS ORDERED: LR 1,000 ML IV ONE (08:25)
[2018-11-06] MEDS ORDERED: DEXAMETHASONE 4 MG/ML VIAL IVP PRN (09:52)
[2018-11-06] MEDS ORDERED: ACETAMINOPHEN 500 MG TAB PO PRN (09:52)
[2018-11-06] MEDS ORDERED: HYDROmorphONE/DILAUDID 2 MG/ML INJ IVP PRN (09:52)
[2018-11-06] MEDS ORDERED: NALOXONE HCL 0.4 MG/ML INJ IVP PRN (09:52)
[2018-11-06] MEDS ORDERED: ALBUTEROL 3 ML DEYVIAL IH PRN (09:52)
[2018-11-06] MEDS ORDERED: ONDANSETRON 4 MG/2 ML VIAL IVP PRN ×2 (09:52→11:19)
[2018-11-06] MEDS ORDERED: MIDAZOLAM 2 MG/2 ML VIAL IVP ONE (09:52)
[2018-11-06] MEDS ORDERED: oxyCODONE IR 5 MG TAB PO PRN (09:52)
[2018-11-06] MEDS ORDERED: LIDOCAINE 2% JELLY 20 ML (UROJECT) ONE (09:54)
--- NOTE | 2018-11-06 09:54 | PDANEPAE ---
ANE History of Present Illness TUPBT ANE Past Medical History - Cardiovascular History Hx Hypertension: Yes Hx Arrhythmias: No Hx Chest Pain: No Hx Coronary Artery / Peripheral Vascular Disease: No Hx CHF / Valvular Disease: No Hx Palpitations: No Cardiovascular History Comment: hypercholesterolemia - Pulmonary History Hx COPD: No Hx Asthma/Reactive Airway Disease: No Hx Recent Upper Respiratory Infection: No Hx Oxygen in Use at Home: No Hx Sleep Apnea: No Sleep Apnea Screening Result - Last Documented: Positive Pulmonary History Comment: randi triggers - Neurologic History Hx Cerebrovascular Accident: Yes Hx Seizures: No Hx Dementia: No Neurologic History Comment: tia 2007 - Endocrine History Hx Diabetes: No - Renal History Hx Renal Disorders: Yes Renal History Comment: bph. hx of bladder CA with TURBT and BCG TREATMENTS LAST 08/2017 - Liver History Hx Hepatic Disorders: No - Neurological & Psychiatric Hx Hx Neurological and Psychiatric Disorders: No - Cancer History Hx Cancer: Yes Cancer History Comment: BLADDER - Congenital Disorder History Hx Congenital Disorders: No - GI History Hx Gastrointestinal Disorders: Yes Gastrointestinal History Comment: hiatal hernia MANAGED BY DIET - Other Health History Other Health History: OSTEOARTHRITIS. wears glasses - Chronic Pain History Chronic Pain: No - Surgical History Prior Surgeries: 03/25/18 left TKA with Kortney. 11/20/17 right SERENITY with Kortney. 03/10/15 TURBT with Melouk. LT KNEE SCOPE ANE Review of Systems Review of Systems: - Exercise capacity METS (RN): 4 METS ANE Patient History - Allergies Allergies/Adverse Reactions: celecoxib [From Celebrex] Allergy (Verified 11/05/18 14:39) Violent Diarrhea garlic Allergy (Verified 11/05/18 14:39) GI ISSUES onion Allergy (Verified 11/05/18 14:39) GI ISSUES - Home Medications Home Medications: Atorvastatin Calcium [Lipitor 40 mg (*)] 40 mg PO DAILY 03/03/18 [Last Taken 04/17 06:50] Calcium Carb W/Vit D [Calcium Carb W/Vit D 500/200 (*)] 500 mg PO DAILY [Last Taken 11/01/18] Losartan/Hydrochlorothiazide [Losartan-Hctz 100-25 mg Tab] 1 each PO DAILY 03/03 [Last Taken 11/05/18] Multivitamins [Multivitamin (*)] 1 each PO DAILY 03/03/18 [Last Taken 11/01/18] amLODIPine BESYLATE [Norvasc 2.5 mg (*)] 2.5 mg PO DAILY 03/03/18 [Last Taken 06:50] Aspirin [Aspirin 81mg (*)] 81 mg PO DAILY 10/31/18 [Last Taken 11/01/18] Tamsulosin HCl [Flomax 0.4 MG (*)] 0.4 mg PO DAILY 10/31/18 [Last Taken 06:50] - NPO status NPO Since - Liquids (Date): 11/06/18 NPO Since - Liquids (Time): 06:00 NPO Since - Solids (Date): 11/05/18 NPO Since - Solids (Time): 20:00 - Smoking Hx Smoking Status: Former smoker - Family Anes Hx Family Hx Anesthesia Complications: none ANE Labs/Vital Signs - Labs Result Diagrams: 11/06/18 08:50 - Vital Signs Blood Pressure: 163/83 Heart Rate: 65 Respiratory Rate: 18 O2 Sat (%): 94 Height: 170.18 cm Weight: 78.471 kg ANE Physical Exam - Airway Neck exam: FROM Mallampati Score: Class 2 Mouth exam: normal dental/mouth exam - Pulmonary Pulmonary: clear to auscultation - Cardiovascular Cardiovascular: regular rate and rhythym - ASA Status ASA Status: II ANE Anesthesia Plan Anesthesia Plan: GA w LMA
--- NOTE | 2018-11-06 10:02 | PDHPUP ---
History & Physical Update H&P update statement: This history and physical update is based on an assessment of the patient which was completed after admission or registration (within 24 hours), but prior to the surgery/procedure. H&P update: no change in patient's condition since H&P completed
[2018-11-06] MEDS ORDERED: PROPOFOL/EMULSION 500 MG/50 ML BOTTLE IV ONE ×2 (10:13→10:17)
[2018-11-06] MEDS ORDERED: fentaNYL 100 MCG/2 ML INJ ONE (10:23)
[2018-11-06] MEDS ORDERED: ROCURONIUM 50 MG/5 ML VIAL ONE (10:38)
[2018-11-06] MEDS ORDERED: RANITIDINE 50 MG/2 ML VIAL ONE (10:39)
[2018-11-06] MEDS ORDERED: DEXAMETHASONE 4 MG/ML VIAL ONE (10:39)
[2018-11-06] MEDS ORDERED: ONDANSETRON 4 MG/2 ML VIAL ONE (10:39)
--- NOTE | 2018-11-06 11:18 | POSTOPPROG ---
Post Op Note Date of Operation: 11/06/18 Surgeon: Sarah Bravo (# [id number]) Anesthesia: LMA Pre-op Diagnosis: Bladder tumor Post-op Diagnosis: 5 cm bladder tumor Procedure: TURBT Findings: See op note Inf/Abcess present in the surg proc area at time of surgery?: No EBL: Minimal Complications: None Specimen(s): Bladder tumor
[2018-11-06] MEDS ORDERED: LIDOCAINE 2% JELLY 5 ML TUBE TP PRN (11:19)
[2018-11-06] MEDS ORDERED: HYDROCODONE/APAP 5/325 TAB PO PRN (11:19)
[2018-11-06] MEDS ORDERED: OPIUM/BELLADONNA ALKALO SUPP PR PRN (11:19)
[2018-11-06] MEDS ORDERED: PROMETHAZINE HCL 25 MG/ML INJ IVP PRN (11:19)
--- NOTE | 2018-11-06 11:22 | POSTANESTH ---
Post Anesthetic Evaluation Cardiovascular Status: Normal, Stable Respiratory Status: Normal, Stable Level of Consciousness/Mental Status: Can Participate in Eval, Alert and Oriented Pain Control: Adequate, Prn Tx Ordered Nausea/Vomiting Control: Adequate, Prn Tx Ordered Complications Possibly Related to Anesthesia: None Noted
[2018-11-06] MEDS ORDERED: D5W 1/2 NS 1,000 ML IV SCH (11:30)
--- NOTE | 2018-11-06 11:53 | GOP ---
[f rep st] OPERATIVE REPORT DATE OF OPERATION: 11/06/2018 SURGEON: Sarah Bravo MD ANESTHESIA: Laryngeal mask. PREOPERATIVE DIAGNOSIS: Bladder tumor with history of bladder cancer. POSTOPERATIVE DIAGNOSIS: Approximately 5 cm bladder tumor with history of bladder cancer. PROCEDURE PERFORMED: Transurethral resection of large bladder tumor. FINDINGS: Approximately 5 cm region of abnormal bladder urothelium. SPECIMENS: Bladder tumor. ESTIMATED BLOOD LOSS: Minimal. INDICATIONS: This gentleman has been undergoing surveillance cystoscopy for bladder cancer, which was previously treated with resection and BCG. He has an area of prominent abnormal erythema that is concerning for recurrent cancer. Therefore, he presents for operative management. The indications for the procedures as well as potential risks and complications were discussed with the patient preoperatively. He appeared to understand, his questions were answered , and he wished to proceed. Written informed surgical consent was thereafter obtained. DESCRIPTION OF PROCEDURE: The patient was brought to the operating room and administered laryngeal mask anesthesia. He was carefully placed in the dorsal lithotomy position on the cystoscopic table. The genital area was sterilely prepped with Betadine scrub and paint, then draped in usual sterile fashion. Cystoscopy was performed with the 30-degree and 70-degree lenses through a 22- [place]er sheath. Anterior urethra revealed no abnormalities. Posterior urethra revealed moderate circumferential BPH. The bladder was heavily trabeculated with a few shallow diverticula noted diffusely. Thorough examination of the bladder revealed an approximately 5 cm region of abnormally raised papillary erythema involving the mucosa near the dome of the bladder. This is the area of concern that was noted recently on office cystoscopy. The remainder of the bladder was unremarkable. A 26-[place] Ashley resectoscopic sheath was then inserted, along with the Ashley resectoscope and a standard resecting loop. Using normal saline continuous flow, the area of concern was systematically resected carefully. Once the area of concern had been completely resected, I inserted the button electrode and fully cauterized the area that was resected as well as the surrounding tissue, both for hemostasis and local tumor control purposes. All the tissue was removed from the bladder using an Smappo evacuator. At the conclusion of the operation, the bladder was hemostatic and there was no gross perforation that had occurred as a result of the operative process. The instruments were removed and an 18-[place] Islander 3-way Ferreira catheter inserted with approximately 20 cc of sterile water inserted in the balloon. Continuous irrigation was started with normal saline. The urine return at the end of the case was completely clear. The catheter was connected to bag drainage. He was awakened, transferred to his bed, then taken to the recovery room. He tolerated the procedure well overall. COMPLICATIONS: None. DISPOSITION: He was transferred to the recovery room in stable condition and will be admitted overnight for continuous irrigation and observation. /[id number]/MODL MTDD
[2018-11-07 08:14] VITALS: BP 166/77
[2018-11-07] MEDS ORDERED: ATORVASTATIN CALCIUM 40 MG TAB PO SCH (09:00)
[2018-11-07] MEDS ORDERED: LOSARTAN/HCTZ 50/12.5 1 TAB PO SCH (09:00)
[2018-11-07] MEDS ORDERED: TAMSULOSIN HCL 0.4 MG CAP PO SCH (09:00)
--- NOTE | 2018-11-07 09:01 | SOAPPROG ---
SOAP Progress Note Assessment/Plan: Assessment: POD 1 s/p TURBT - doing well. Plan: 1. D/C home w/ Ferreira. 2. FU in 2 weeks, pt. to remove Ferreira at home on Saturday AM. Subjective: No complaints. Objective: Vital Signs Temp Pulse Resp BP Pulse Ox 36.9 C 55 L 16 166/77 H 95 11/07/18 07:56 11/07/18 07:56 11/07/18 07:56 11/07/18 08:13 11/07/18 07:56 Laboratory Results 11/06/18 08:50 11/06/18 11/07/18 11/08/18 05:59 05:59 05:59 Intake Total 2510 Output Total 1102 2550 Balance 1408 -2550 Physical Exam - Physical Exam General Appearance: WD/WN, alert, no apparent distress Abdomen: soft Male Genitalia: other (urine clear on low-rate CBI) Extremities: normal inspection Neuro/Psych: alert, normal mood/affect ICD10 Worksheet Patient Problems: Problems Problem Status Onset Osteoarthritis of left knee Acute Osteoarthritis of right hip Acute
--- NOTE | 2018-11-07 09:50 | ASMTCMCOM ---
CM Note CM Note Notes: Patient is s/p TURP of bladder. He has discharge orders. He is to dc home with indwelling khan and follow up in office. No current needs identified. CM available should needs arise. Plan: Dc to home with outpatient follow up. Date Signed: 11/07/2018 09:49 AM Electronically Signed By:Leonarda Darling RN
--- NOTE | 2018-11-07 09:52 | ASMTLACE ---
LACE Length of stay for Answers: Less than 1 day current admission Acuity / Level of Answers: No Care: Did the patient have an inpatient admission? Comorbidities - select Answers: Any tumor (including all that apply lymphoma or leukemia) Cerebrovascular disease (CVA, TIA, aneurysms, vasc ular dementia) Score: 3 Date Signed: 11/07/2018 09:51 AM Electronically Signed By:Leonarda Darling RN
--- NOTE | 2018-11-07 09:54 | ASMTDCNOTE ---
Case Management Discharge Discharge Order Complete? Answers: Yes Patient to Obtain Answers: via Family Medications Transportation Arranged Answers: Family/Friends Family Notified Answers: Yes Discharge Comments Notes: Medically cleared for discharge to home with erin. Date Signed: 11/07/2018 09:53 AM Electronically Signed By:Leonarda Darling RN
--- NOTE | 2018-11-12 07:38 | GDS ---
[f rep st] DISCHARGE SUMMARY ADMIT DIAGNOSIS: Bladder tumor with history of bladder cancer. DISCHARGE DIAGNOSIS: Bladder tumor with history of bladder cancer. PROCEDURE: Transurethral resection of bladder tumor on 11/06/2018. HOSPITAL COURSE: Refer to the operative report for details regarding the surgery. Postoperatively, the patient did very well. He was maintained on continuous bladder irrigation the night of surgery, and this was stopped the following morning. The urine remained clear. The patient was otherwise doi ng well. He was ready for discharge with his Ferreira catheter on postoperative day 1. Pathology resul ts were pending. A Ferreira catheter and activity restriction instructions were provided. The patient will return to the office as scheduled in approximately 2 weeks. /[id number]/MODL
== END 2018-11-07 10:52 | disposition home or self-care (01) ==
LOC: F1N 08:12
PROVIDERS: ADMIT Specialist; ATTEND Specialist
DX: D41.4 Neoplasm of uncertain behavior of bladder (principal); N40.1 Benign prostatic hyperplasia with lower urinary tract symptoms; R39.15 Urgency of urination; R33.9 Retention of urine, unspecified; R35.1 Nocturia; I10 Essential (primary) hypertension; E78.5 Hyperlipidemia, unspecified; Z85.51 Personal history of malignant neoplasm of bladder; Z86.73 Personal history of transient ischemic attack (TIA), and cerebral infarction without residual deficits; Z87.891 Personal history of nicotine dependence; Z82.49 Family history of ischemic heart disease and other diseases of the circulatory system; Z96.641 Presence of right artificial hip joint; Z96.652 Presence of left artificial knee joint
CPT/HCPCS: 52235; 88307; J1100; J1956; J2250; J2405; J2704; J2780; J3010